=== PATIENT | female | born 1945 | race Caucasian/White ===

== ENCOUNTER → 2021-03-10 | Outpatient (CLI) | payer MEDICARE, OTHER ==
[2021-03-12 08:14] LABS: VITAMIN D, 25-HYDROXY 53.6 ng/mL (30.0-100.0)
[2021-03-12 12:15] LABS: COMPLEMENT C3, SERUM 160 mg/dL (82-167); COMPLEMENT C4, SERUM 36 mg/dL (12-38); RHEUMATOID ARTHRITIS FACTOR <10.0 IU/mL (0.0-13.9); TRANSFERRIN 241 mg/dL (192-364)
== END ==
LOC: LAB 15:00
PROVIDERS: Internal Medicine
DX: R79.89 Other specified abnormal findings of blood chemistry (principal); Z87.898 Personal history of other specified conditions; M25.50 Pain in unspecified joint; R23.1 Pallor; D53.9 Nutritional anemia, unspecified; E55.9 Vitamin D deficiency, unspecified
CPT/HCPCS: 36415; 82607; 82728; 82746; 83520; 83540; 83550; 84466; 85045; 86160; 86200; 86431